=== PATIENT | male | born 1980 | race Caucasian/White ===

== ENCOUNTER 2016-09-06 17:51 | Emergency (ER) | payer OTHER ==
[~2016-09-06] VITALS: Ht 177.8 cm; Wt 87.1 kg
--- NOTE | ~2016-09-06 | EKG ---
[place] [address] [facility] [employer] [place] [address] ELECTROCARDIOGRAM REPORT Name: ESTEPHANIE MEEK Room [facility] [id number] Admission: 09/06/16 Attend Phys: Discharge: 09/06/16 Date of : 78 Report #: [id number] THIS REPORT FOR: //name// [facility] ED Test Date: 2016-09-06 Test Time: 17:58:11 Pat Name: ESTEPHANIE MEEK Department: Room: Gender: Alternative Medicine Practitioner: JIA : 1980 Requested By: Sonya Valero Order Number: [id number] MD: Jt Evans Measurements Intervals [place] Rate: 84 P: 48 NM: 134 QRS: 58 QRSD: 112 T: 15 QT: 355 QTc: 420 Interpretive Statements Sinus rhythm Borderline intraventricular conduction delay Baseline wander in lead(s) V2 No previous ECG available for comparison Electronically Signed On 09-08-2016 7:59:53 CDT by Jt Evans [email or web address] <ELECTRONICALLY SIGNED> By: Jt Evans MD, [facility] 09/08/16 [id number] 1758 Jt Evans MD, FACC /EPI
[2016-09-06 18:29] LABS: HEMATOCRIT 46.8 % (42.0-52.0); MANUAL DIFF YES; MCH 31.9 pg (26.0-34.0); MCHC 36.3 g/dL (28.0-37.0); MCV 87.8 fL (80.0-100.0); PLATELET COUNT 208 thou/uL (150-400); RBC 5.33 mil/uL (4.50-6.00); RDW 13.5 % (10.5-14.5); WBC 10.2 thou/uL (4.0-11.0)
[2016-09-06 18:33] LABS: CALCIUM 9.6 mg/dL (8.5-10.1); CREATININE 1.3 mg/dL (0.7-1.3); POTASSIUM 3.7 mmol/L (3.5-5.1)
[2016-09-06 18:38] LABS: ALBUMIN 4.5 g/dL (3.4-5.0); TOTAL BILIRUBIN 2.7 mg/dL (<0.1-1.0); TOTAL PROTEIN 7.4 g/dL (6.4-8.2)
[2016-09-06 19:01] LABS: ABSOLUTE NEUTROPHILS 6.8 thou/uL (1.4-8.2); TOTAL CELL COUNT 100
[2016-09-06 19:02] LABS: BURR CELLS 1+
[2016-09-06 19:07] LABS: URINE BILIRUBIN NEGATIVE (Negative); URINE BLOOD NEGATIVE (Negative); URINE COLOR YELLOW; URINE GLUCOSE-RANDOM* NEGATIVE (Negative); URINE KETONES NEGATIVE (Negative); URINE NITRITE NEGATIVE (Negative); URINE PROTEIN (DIPSTICK) NEGATIVE (Negative); URINE UROBILINOGEN 0.2 E.U./dl (0.2-1.0)
[2016-09-06 19:50] VITALS: BP 129/83
== END 2016-09-06 19:58 | disposition home or self-care (01) ==
LOC: ER 17:51
PROVIDERS: Physician Assistant
DX: T67.9XXA Effect of heat and light, unspecified, initial encounter (principal); E86.0 Dehydration; R07.89 Other chest pain; Z90.49 Acquired absence of other specified parts of digestive tract; Z88.0 Allergy status to penicillin; X30.XXXA Exposure to excessive natural heat, initial encounter; Y93.89 Activity, other specified; Y92.89 Other specified places as the place of occurrence of the external cause; Y99.8 Other external cause status